=== PATIENT | male | born 1970 | race Caucasian/White ===

== ENCOUNTER 2022-01-12 00:49 | Emergency (ER) | payer BC, OTHER ==
[~2022-01-12] VITALS: Ht 175.3 cm; Wt 83.5 kg
[2022-01-12 00:52] VITALS: BP 143/82
[2022-01-12] MEDS ORDERED: ALBUTEROL SULFATE/IPRATROPIU 3 ML SOL IH ONE (01:05)
--- NOTE | 2022-01-12 01:15 | NUR ---
PT ASSESSMENT COMPLETED BY POOL. NO NURSING INTERVENTIONS REQUIRED AT THIS TIME.
[2022-01-12] MEDS ORDERED: ALBU0.0912 IH (01:41)
[2022-01-12 01:47] VITALS: BP 133/76
--- NOTE | 2022-01-12 01:47 | NUR ---
Patient discharged with v/s stable. Written and verbal after care instructions given and explained. Patient verbalized understanding. Ambulatory with steady gait. All questions addressed prior to discharge. Advised to follow up with PMD.
== END 2022-01-12 01:47 | disposition home or self-care (01) ==
LOC: MED 00:49
DX: J06.9 Acute upper respiratory infection, unspecified (principal); J45.909 Unspecified asthma, uncomplicated; Z79.899 Other long term (current) drug therapy
CPT/HCPCS: 71045; 94640; 99283